=== PATIENT | male | born 1970 | race African-American/Black ===

== ENCOUNTER 2020-05-16 07:12 | Outpatient (REF) | payer OTHER, SELFPAY | END 2020-05-16 07:13 | disposition home or self-care (01) | LOC: HO.LAB 07:12 | PROVIDERS: Visit Provider Internal Medicine | DX: Z20.828 Contact with and (suspected) exposure to other viral communicable diseases (principal) | CPT/HCPCS: C9803; U0003 ==

== ENCOUNTER 2020-08-16 19:55 | Emergency (ER) | payer OTHER, SELFPAY ==
--- NOTE | ~2020-08-16 | XR_ITS ---
EXAMINATION: XR SHOULDER, LEFT CLINICAL INFORMATION: Right shoulder pain COMPARISON: None TECHNIQUE: AP external rotation, Grashey, scapular Y, and axillary views of the left shoulder. FINDINGS: No acute fracture or dislocation. Small marginal osteophytes along the glenohumeral and acromioclavicular joints. Mild calcific rotator cuff tendinopathy evident. XR/XR shoulder LT min 2V IMPRESSION: No acute fracture or dislocation. Chronic changes as above
[2020-08-16 19:56] VITALS: BP 148/109; PULSE 102; RESP 15; TEMP 37; O2SAT 97; BMI 33.9
--- NOTE | 2020-08-16 21:39 | ED.EXTPRO ---
HPI - Extremity Problem General Chief complaint: Extremity Injury, Upper Stated complaint: Shoulder pain Time Seen by Provider: 08/16/20 21:06 Source: patient Mode of arrival: ambulatory Limitations: no limitations History of Present Illness HPI Narrative: Patient presents to the ED for left shoulder pain for one month that is worse on movement. patient states pain started after moving a fridge and ever since has had the pain. patient was seen by his PCP and was told he might have a nerve impingement. Patient states he never had any imaging done to confirm diagnosis. patietn states no chest pain, shorntess of breath, coughing, fever, chills, redness, or swelling or upper extremities. Related Data Previous Rx's Medication Instructions Recorded cyclobenzaprine 10 mg PO TID PRN #18 tab 08/16/20 naproxen 500 mg PO BID PRN #20 tab 08/16/20 Allergies Allergy/AdvReac Type Severity Reaction Status Date / Time Milk Containing Products Allergy Shortness Verified 08/16/20 20:04 of Breath Review of Systems Review of Systems: Yes all other systems are reviewed and are negative Constitutional: Constitutional: Reports as per HPI and Reports no additional constitutional complaints Eyes: Eyes: Reports as per HPI and Reports no additional eye complaints ENT: Reports system reviewed and no additional complaints, except as documented and Reports as per HPI Cardiovascular: Cardiovascular: Reports as per HPI and Reports no additional cardiovascular complaints Respiratory: Respiratory: Reports as per HPI and Reports no additional respiratory complaints Gastrointestinal: Gastrointestinal: Reports as per HPI and Reports no additional gastrointestinal complaints Genitourinary: Genitourinary: Reports no additional male genitourinary complaints and Reports as per HPI Musculoskeletal: Musculoskeletal: Reports no additional musculoskeletal complaints, Reports as per HPI and Reports arthralgias (left shoulder) Neurologic: Reports system reviewed and no additional complaints, except as documented and Reports as per HPI Psychiatric: Psychiatric: Reports no additional psychiatric complaints and Reports as per HPI [facility] Past Medical History Medical History (Updated 08/17/20 @ 00:01 by Timi Nolasco) Hypertension Surgical History (Updated 08/16/20 @ 20:03 by Meche Quezada) No history of previous surgery Social History Social History Alcohol intake: never Smoked in Last 30 Days: No Use of substances other than those prescribed or required for medical reasons: No Advance Directives: No Advance Directives Information Provided: No Physical Exam Vital Signs: Vital Signs: Last Vital Signs Temp 98.6 F 08/16/20 19:56 Pulse 102 H 08/16/20 19:56 Resp 15 08/16/20 19:56 BP 148/109 H 08/16/20 19:56 Pulse Ox 97 08/16/20 19:56 Body Mass Index 33.9 Const: General: cooperative, healthy appearing, comfortable, no acute distress, well developed, alert, awake and Physically active Orientation/consciousness: patient oriented x3 HENMT: Head: Yes normal to inspection and Yes No palpable skull fracture present Eyes: General: appearance normal, both eyes and all related structures Neck: Neck: Yes normal visual inspection, Yes full ROM, Yes no lymphadenopathy, Yes no meningeal signs, Yes trachea midline, Yes supple and No tender Chest: Chest palpation & inspection: normal inspection of the chest and normal palpation of entire chest wall Resp: Effort & Inspection: normal respiratory effort and able to speak in complete sentences Auscultation: clear to auscultation bilaterally Cardio: Jugular venous distension: no JVD Heart sounds: S1 normal heart sound present and S2 normal heart sound present GI: Inspection: Yes normal to inspection and No abdominal wall ecchymosis Palpation (GI): Soft to palpation, not firm, nontender, no guarding and not rigid : General: No CVA tenderness and Yes no CVA tenderness Back/Spine/Pelvis: Back: no CVA tenderness, No CVA tenderness and No back tenderness Skin: General skin exam: no rashes or lesions noted and elasticity normal Neuro: General: patient oriented x3, no meningeal signs and CN's II-XI intact bilaterally Cranial nerves: Yes CN's II-XII intact bilaterally Extrem: Other: Positive for left shoulder tenderness on palpation and movement. left upper extremity negative for swelling, redness, warmth, or deformity. vascular and motor nad neuro exam is intact. Psych: Appearance: grossly normal, well kempt and not disheveled Course Course Course Narrative: Patient will have shoulder xray Reevaluation(s) Reevaluation #1: Xray shows arthritis and rotator cuff tendonitits. Toraodl ordered Time: 22:14 MDM - Extremity (Nontraumatic) MDM Narrative Medical decision making narrative: left shoulder Arthritis/rotator cuff tendonitis Discharge Plan Discharge Clinical Impression: Arthritis of shoulder, Rotator cuff injury Patient Disposition: Home, Self-Care Instructions: Rotator Cuff Tendinitis (ED), Osteoarthritis (ED) Additional Instructions: Return to the ED for any chest pain, shortness of breath, coughing up blood, weakness, swelling of extremity, redness, or any other concerning symptoms. Left shoulder xray shows osteoarthritis and rotator cuff tendonitis. Recommend MRI with PCP. Prescriptions: New naproxen 500 mg tablet 500 mg PO BID PRN (Reason: pain) Qty: 20 RF: 0 cyclobenzaprine 10 mg tablet 10 mg PO TID PRN (Reason: pain) Qty: 18 RF: 0 Interventions: ED Discharge Assessment Last Done: 08/16/20 22:31 Discharge Date/Time: 08/16/20 22:37 Print Language: [place]
[2020-08-16] MEDS: Ketorolac Tromethamine 30 MG/ML VIAL IM (22:02)
== END 2020-08-16 22:37 | disposition home or self-care (01) ==
PROVIDERS: Emergency Provider Internal Medicine
DX: S46.092A Other injury of muscle(s) and tendon(s) of the rotator cuff of left shoulder, initial encounter (principal); M79.622 Pain in left upper arm; I10 Essential (primary) hypertension; X58.XXXA Exposure to other specified factors, initial encounter; Y93.9 Activity, unspecified; Y92.9 Unspecified place or not applicable; Y99.9 Unspecified external cause status; Z79.899 Other long term (current) drug therapy
CPT/HCPCS: 73030; 96372; 99284; J1885